=== PATIENT | female | born 1995 | race African-American/Black ===

== ENCOUNTER 2023-06-26 06:29 | Emergency (ER) | payer OTHER, MEDICAID ==
[~2023-06-26] VITALS: Ht 170.2 cm; Wt 128.0 kg
[2023-06-26 06:41] VITALS: BP 124/85; PULSE 113; RESP 24; TEMP 97.6
[2023-06-26 07:00] VITALS: O2SAT 98
[2023-06-26] MEDS ORDERED: FAMOTIDINE 20 MG TAB PO ONE (07:00)
[2023-06-26] MEDS ORDERED: methylPREDNISolone SOD SUCC 125 MG/2 ML VL IM ONE (07:00)
[2023-06-26] MEDS ORDERED: diphenhdrAMINE HCL 50 MG/1 ML VL IV ONE (07:00)
[2023-06-26] MEDS ORDERED: diphenhdrAMINE HCL 50 MG/1 ML VL IM ONE (07:30)
[2023-06-26] MEDS ORDERED: FAMO20TA10 PO (07:58)
[2023-06-26] MEDS ORDERED: PRED20TA2 PO (07:58)
[2023-06-26] MEDS ORDERED: DIPH25TA54 PO (07:58)
== END 2023-06-26 08:04 | disposition home or self-care (01) ==
LOC: ER 06:29
DX: J30.81 Allergic rhinitis due to animal (cat) (dog) hair and dander (principal)
CPT/HCPCS: 96372; 99284; J2930